=== PATIENT | female | born 1955 | race Caucasian/White ===

== ENCOUNTER 2019-03-08 23:11 | Inpatient (IN) ==
[2019-03-09] MEDS ORDERED: NARCAN IV ONE (00:27)
[2019-03-09 00:55] LABS: BASO# 0.04 X1000 (0.0-0.2); BASO% 0.7 % (0.0-0.8); EOS# 0.16 X1000 (0.0-0.7); EOS% 2.6 % (0.0-10.0); HEMATOCRIT 39.3 % (37.0-47.0); HEMOGLOBIN 12.6 g/dL (12.0-16.0); LYMPH# 1.79 X1000 (1.2-3.4); LYMPH% 29.2 % (20.5-51.1); MCH 30.1 PG (27-31); MCHC 32.1 g/dL (33-37); MCV 93.8 FL (81-99); MONO# 0.37 X1000 (0.11-0.59); MPV 10.3 FL (7.4-10.4); NEUT# 3.78 X1000 (1.4-6.5); NEUT% 61.5 % (42.2-75.2); PLT 256 X1000 (130-400); RBC 4.19 XMIL (4.2-5.4); RDW 14.9 % (11.5-14.5); WBC 6.14 X1000 (4.8-10.8)
[2019-03-09 01:21] LABS: AGAP 4; ALB/GLOB RATIO 1.4; ALBUMIN 3.5 g/dL (3.5-5.0); ALKALINE PHOSPHATASE 60 U/L (32-104); BUN 20 mg/dL (8-22); CALCIUM 8.4 mg/dL (8.8-10.2); CHLORIDE 107 mmol/L (98-107); COSMO 288; CREATININE 0.6 mg/dL (0.5-0.9); ESTIMATED GFR > 60; GLUCOSE 105 mg/dL (70-104); GOT 18 U/L (10-30); GPT 7 U/L (10-36); POTASSIUM 3.9 mmol/L (3.5-5.1); SODIUM 143 mmol/L (136-145); TCO2 32 mmol/L (25-35); TOTAL BILIRUBIN < 0.15 mg/dL (0.20-1.00)
[2019-03-09 02:14] LABS: URINE SOURCE CATH
[2019-03-09 02:21] LABS: BILIRUBIN URINE NEGATIVE (NEGATIVE); BLOOD URINE MODERATE (NEGATIVE); COLOR YELLOW; GLUCOSE URINE NEGATIVE (NEGATIVE); KETONE URINE 40 mg/dL (NEGATIVE); LEUKOCYTES URINE NEGATIVE (NEGATIVE); NITRITE URINE NEGATIVE (NEGATIVE); PH URINE 5.5; PROTEIN URINE 30 mg/dL (NEGATIVE); TURBIDITY URINE CLEAR (CLEAR); UROBILINOGEN URINE 2 mg/dL (NORMAL)
[2019-03-09 02:27] LABS: UR EPITHELIAL CELLS <10 /HPF (<10); URINE BACTERIA NEGATIVE /HPF; URINE RBC <10 /HPF (<10); URINE WBC <10 /HPF (<10)
[2019-03-09 02:30] LABS: UR AMPHETAMINES QUAL NONE DETECTED (NONE DETECT); UR BARBITUATES QUAL NONE DETECTED (NONE DETECT); UR BENZODIAZEPIN QUAL NONE DETECTED (NONE DETECT); UR CANNABINOIDS QUAL NONE DETECTED (NONE DETECT); UR COCAINE QUAL NONE DETECTED (NONE DETECT); UR METHADONE QUAL NONE DETECTED (NONE DETECT); UR OPIATES QUAL NONE DETECTED (NONE DETECT); UR OXYCODONE QUAL NONE DETECTED (NONE DETECT); UR PCP QUAL NONE DETECTED (NONE DETECT)
[2019-03-09 02:32] LABS: URINE CASTS NONE SEEN; URINE CRYSTALS NONE SEEN; URINE SMALL ROUND CELLS NONE SEEN; URINE YEAST PRESENT
--- NOTE | 2019-03-09 05:37 | Diag Imaging Result Doc PS360 ---
EXAM: CHEST-1 VIEW HISTORY: ams, fever TECHNIQUE: Chest single view COMPARISON: 02/19/2019 FINDINGS: The lungs are well expanded. The heart is not enlarged. The vessels are not distended. There are mild increased interstitial markings. No effusion identified. IMPRESSION: Mild pulmonary edema versus pneumonia Electronically signed by Jim Nascimento 03/09/2019 5:35 AM
--- NOTE | 2019-03-09 07:03 | PROVIDER DOCUMENTATION ---
This chart was entered by Jena Shell Scribe, acting as scribe for Tino Castellanos MD. HPI-General Adult - General Source: patient - History of Present Illness -Gen Adult Nature of Presenting Problems: Pt is 63/F presenting to ED w/ reports from daughter that she has been sleeping all day, not waking up easily and having some AMS. Pt did have bronchitis 2 wee ks ago. Location of Pain/Injury: reports: none Pain Radiation: reports: no radiation Quality of Pain: reports: none Severity: reports: mild Onset/Duration: reports: this morning Context/Activities at Onset: reports: none Modifying Factors: improves with: nothing Associated Symptoms: reports: denies symptoms. denies: chest pain, fever/chills, nausea, vomiting <Tino Castellanos - Last Filed: 03/09/19 07:02> <Michelle Casas - Last Filed: 03/09/19 07:33> - General Chief Complaint: Altered Mental Status Stated Complaint: AMS, POSS STROKE Time Seen by Provider: 03/09/19 00:08 Allergies/Adverse Reactions: Patient Allergies Allergy/AdvReac Type Severity Reaction Status Date / Time naproxen Allergy Mild ITCHING Verified 03/09/19 06:50 Home Medications: Home Medication List Medication Instructions Recorded Confirmed Last Taken Type Albuterol Sulfate [Ventolin Hfa] 03/09/19 03/08/19 History Buprenorphine HCl/Naloxone HCl 03/09/19 03/08/19 History [Buprenorp-Nalox 8-2 mg Sl Film] Levofloxacin 03/09/19 03/08/19 History Lisinopril/Hydrochlorothiazide 03/09/19 03/08/19 History [Lisinopril-Hctz 20-25 mg Tab] Review of Systems - Adult - REVIEW OF SYSTEMS - ADULT Constitutional: reports: no symptoms reported. denies: chills, fever Eyes: reports: no symptoms reported Ears, Nose, Mouth & Throat: reports: no symptoms reported Cardiovascular: reports: no symptoms reported. denies: chest pain Respiratory: reports: no symptoms reported. denies: cough, shortness of breath, wheezing Gastrointestinal: reports: no symptoms reported. denies: abdominal pain, nausea, vomiting Genitourinary: reports: no symptoms reported Musculoskeletal: reports: no symptoms reported Integumentary: reports: no symptoms reported Neurological: reports: no symptoms reported. denies: dizziness/vertigo, headache/migraines Psychiatric: reports: no symptoms reported Endocrine: reports: no symptoms reported Hematologic/Lymphatic: reports: no symptoms reported Allergic/Immunologic: reports: no symptoms reported All Other Systems: Reviewed and Negative <Tino Castellanos - Last Filed: 03/09/19 07:02> Past History - Adult - PAST MEDICAL HISTORY-ADULT Review of Records: reports: Old Records Reviewed, Nursing Assessment Review Major Childhood Illnesses: reports: denies history Cardiovascular: reports: HTN Respiratory: reports: asthma Gastrointestinal: reports: denies history Obstetrical/Gynecological: reports: denies history Genitourinary: reports: denies history Musculoskeletal: reports: denies history Neurological: reports: denies history Psychiatric: reports: denies history Endocrine/Immune: reports: denies history Other Conditions: reports: denies history - SOCIAL HISTORY Smoking: greater than 1 pack/day Provider spent 3-5 mins advising pt. on dangers of tobacco.: Discussed manners to quit use, and f/u contacts for add'l counseling. Substance Use: none/never Alcohol Use Frequency: never Living Situation: family <Tino Castellanos - Last Filed: 03/09/19 07:02> Physical Exam-General - PHYSICAL EXAM-ADULT Initial Vital Signs Reviewed: Yes - CONSTITUTIONAL General Appearance: appears well, alert, no apparent distress - EYES Eyes: PERRL/EOMI, pink conjunctivae, other (pupils are constricted) - HEAD, EARS, NOSE, MOUTH & THROAT HENMT: normocephalic/atraumatic, moist mucous membranes, normal ENT inspection, TMs normal - NECK Neck: non-tender, full range of motion, supple, normal inspection - RESPIRATORY Respiratory: lungs clear - CARDIOVASCULAR Cardiovascular: regular rate, rhythm - GASTROINTESTINAL (ABDOMEN) Abdominal Exam: normal bowel sounds, non tender, soft - LYMPHATIC Lymphatic: no adenopathy - MUSCULOSKELETAL Back Exam: normal inspection, no CVA tenderness, no vertebral tenderness Extremity: normal range of motion, non-tender, normal gait, normal inspection - SKIN Integumentary: normal color, warm/dry - NEUROLOGIC Neurologic: grossly normal - PSYCHIATRIC Psych/Mental Status: normal mood/affect, normal thought content, normal thought process, oriented x 3 <Castellanos,Tino T. - Last Filed: 03/09/19 07:02> Progress - PLAN OF CARE/RESULTS Progress/Plan/Lab Results: Vital Signs - 8 hr 03/08/19 23:23 03/08/19 23:52 Temperature 99.1 F 99.5 F Pulse Rate 61 57 L Respiratory Rate 20 19 Blood Pressure 166/70 151/74 O2 Sat by Pulse Oximetry 91 L 92 L Result Diagrams: 03/09/19 00:20 03/09/19 00:20 - REASSESSMENT Reassessment #1 Time Reassessed: 03:25 (pt seems sl more alert. pupils are not as constricted. She says that took suboxone yest am, no extra. Daughters say has been sleeping since the Narcan) Reassessment #2 Time Reassessed: 06:25 (still with some slurring spech, daughter, G-daughter do not feel is her NL self) - EKG 1 Time of EKG reading by physician:: 00:18 EKG Read and Signed by:: Tino Castellanos EKG Interpretation (*Must complete 3 of following elements*): Abnormal (sinus b radycardia with premature atrial complexes, Possible Anteroseptal infarct, age undetermined, Abnormal ECG) Rate: 57 Rhythm: sinus bradycardia [place]: normal QRS: normal CA Interval: normal - XRAY 1 XRAY Study: Chest Impression: Normal - CT/MRI 1 CT Study: Head Impression: Normal (no acute intracranial abnormality is identified.) - CHANGE OF SHIFT REPORT (ED Provider) 1 Report Given and Care Transferred to:: [facility] Time of Transfer: 07:00 Items Pending: Physician Consult/Arrival <Tino Castellanos - Last Filed: 03/09/19 07:02> - PLAN OF CARE/RESULTS Progress/Plan/Lab Results: Vital Signs - 8 hr 03/08/19 23:52 03/09/19 01:00 03/09/19 02:00 Temperature 99.5 F Pulse Rate 57 L 62 54 L Respiratory Rate 19 17 18 Blood Pressure 151/74 142/91 148/86 O2 Sat by Pulse Oximetry 92 L 98 94 L 03/09/19 04:47 Temperature 98.4 F Pulse Rate 59 L Respiratory Rate 19 Blood Pressure 150/91 O2 Sat by Pulse Oximetry 95 Laboratory Results - last 24 hr 07/09/2703/09/19 03/09/19 00:20 00:20 00:20 WBC 6.14 RBC 4.19 L Hgb 12.6 Hct 39.3 MCV 93.8 MCH 30.1 MCHC 32.1 L RDW Std Deviation 14.9 H Plt Count 256 MPV 10.3 Immature Gran % (Auto) 0.0 Neut % (Auto) 61.5 Lymph % (Auto) 29.2 [place] % (Auto) 6.0 Eos % (Auto) 2.6 Baso % (Auto) 0.7 Immature Gran # (Auto) 0.00 Neut # (Auto) 3.78 Lymph # (Auto) 1.79 [place] # (Auto) 0.37 Eos # (Auto) 0.16 Baso # (Auto) 0.04 Sodium 143 Potassium 3.9 Chloride 107 Carbon Dioxide 32 Anion Gap 4 BUN 20 Creatinine 0.6 Estimated GFR/1.73 m2 > 60 BUN/Creatinine Ratio 33 Glucose 105 H POC Glucose Calculated Osmolality 288 Calcium 8.4 L Total Bilirubin < 0.15 L AST 18 ALT 7 L Alkaline Phosphatase 60 Total Protein 6.0 L Albumin 3.5 Globulin 2.5 Albumin/Globulin Ratio 1.4 Urine Source Urine Color Urine Turbidity Urine pH Ur Specific [place] Urine Protein Ur Glucose (Stick) Ur Ketones (Stick) Urine Blood Urine Nitrite Urine Bilirubin Urobilinogen Dipstick Urine Leukocytes Urine WBC (Auto) Urine RBC (Auto) U Epithel Cells (Auto) Urine Bacteria (Auto) Urine Crystals Small Round Cells Urine Casts Urine Yeast-like Cells Urine Opiates Screen Ur Oxycodone Screen Ur Methadone, Qual Ur Barbiturates Screen Ur Phencyclidine Scrn Ur Amphetamines Screen U Benzodiazepines Scrn Urine Cocaine Screen U Cannabinoids Screen Plasma/Serum Ethyl Alc 03/09/19 03/09/19 03/09/19 01:25 02:08 02:08 WBC RBC Hgb Hct MCV MCH MCHC RDW Std Deviation Plt Count MPV Immature Gran % (Auto) Neut % (Auto) Lymph % (Auto) [place] % (Auto) Eos % (Auto) Baso % (Auto) Immature Gran # (Auto) Neut # (Auto) Lymph # (Auto) [place] # (Auto) Eos # (Auto) Baso # (Auto) Sodium Potassium Chloride Carbon Dioxide Anion Gap BUN Creatinine Estimated GFR/1.73 m2 BUN/Creatinine Ratio Glucose POC Glucose 104 Calculated Osmolality Calcium Total Bilirubin AST ALT Alkaline Phosphatase Total Protein Albumin Globulin Albumin/Globulin Ratio Urine Source CATH Urine Color YELLOW Urine Turbidity CLEAR Urine pH 5.5 Ur Specific [place] 1.030 Urine Protein 30 A Ur Glucose (Stick) NEGATIVE Ur Ketones (Stick) 40 A Urine Blood MODERATE A Urine Nitrite NEGATIVE Urine Bilirubin NEGATIVE Urobilinogen Dipstick 2 A Urine Leukocytes NEGATIVE Urine WBC (Auto) <10 Urine RBC (Auto) <10 U Epithel Cells (Auto) <10 Urine Bacteria (Auto) NEGATIVE Urine Crystals NONE SEEN Small Round Cells NONE SEEN Urine Casts NONE SEEN Urine Yeast-like Cells PRESENT Urine Opiates Screen NONE DETECTED Ur Oxycodone Screen NONE DETECTED Ur Methadone, Qual NONE DETECTED Ur Barbiturates Screen NONE DETECTED Ur Phencyclidine Scrn NONE DETECTED Ur Amphetamines Screen NONE DETECTED U Benzodiazepines Scrn NONE DETECTED Urine Cocaine Screen NONE DETECTED U Cannabinoids Screen NONE DETECTED Plasma/Serum Ethyl Alc Orders Category Date Time Status Nursing- Obtain EKG ONCE Care 03/09/19 00:21 Active CHEST-1 VIEW [RAD] Stat Exams 03/09/19 00:[address] HEAD W/O CONTRAST [CT] Stat Exams 03/09/19 00:23 Completed ALCOHOL BLOOD Stat Lab 03/09/19 00:20 Completed CBC WITH DIFF [HEME] Stat Lab 03/09/19 00:20 Completed COMPREHENSIVE METABOLIC PANEL [CHEM] Stat Lab 03/09/19 00:20 Completed URINALYSIS W/POSS RFLX CULT [URINALYSIS] Stat Lab 03/09/19 02:08 Completed URINE DRUG SCREEN Stat Lab 03/09/19 02:08 Completed URINE MANUAL MICROSCOPIC [URINALYSIS] Stat Lab 03/09/19 02:08 Completed Naloxone [Narcan] Med 03/09/19 00:27 Discontinued 0.4 mg IV NOW ONE EKG [EKG] Stat Ther 03/09/19 00:21 Ordered Result Diagrams: 03/09/19 00:20 03/09/19 00:20 - CONSULTS/PCP/HOSPITALIST Notification #1 *Consult/PCP/Hospitalist*: MIKEL MEDELLIN HOSPITALIST Time Discussed: 07:29 Consult Disposition: Admit <Michelle Casas - Last Filed: 03/09/19 07:33> Departure - Departure Date of Disposition Decision: 03/09/19 Time of Disposition Decision: 06:55 Certified Medical Emergency: Emergent - Critical Care Note This patient required my direct & personal management of CC.: No <Tino Castellanos - Last Filed: 03/09/19 07:02> <Michelle Casas - Last Filed: 03/09/19 07:33> - Departure DIAGNOSIS: Altered mental status Qualifiers: Altered mental status type: unspecified Qualified Code(s): R41.82 - Altered mental status, unspecified Disposition: ADMITTED INPATIENT 09 Condition: Good Referrals and Follow-Ups: John Wells [Primary Care Provider] - Attestation - Physician/ MARYJO Attestation Patient care was provided by Advanced Practice Provider:: No The physician spent face to face time with patient:: Yes Advanced Practice Provider documentation review:: Supervising physician onsite and consulted in the evaluation and care of this patient. The physician did have a face to face encounter with the patient. <Tino Castellanos - Last Filed: 03/09/19 07:02> This chart was documented by the indicated scribe, (Jena Shell, Chrisibe) and accurately reflects the services I performed and decisions made by me, Tino Castellanos MD, as attested by the provider's signature.
--- NOTE | 2019-03-09 07:21 | Diag Imaging Result Doc PS360 ---
EXAM: CT HEAD W/O CONTRAST INDICATION: AMS TECHNIQUE: This exam was performed using automated exposure control, adjustment of mA or kV according to patient size, and/or use of iterative reconstruction technique. COMPARISON: None. FINDINGS: There is no definite acute infarct given the limited sensitivity of CT versus MRI. There is no discrete intracranial mass, mass effect, or intracranial hemorrhage. There is extensive right maxillary sinus mucosal disease with subtotal opacification. Surrounding soft tissues and bony structures are essentially unremarkable, otherwise. IMPRESSION: No evidence of acute intracranial pathology. Electronically signed by Jeffrey Galdamez 03/09/2019 7:18 AM
[2019-03-09] MEDS ORDERED: ZOFRAN IV PRN (07:58)
[2019-03-09] MEDS ORDERED: TYLENOL PO PRN (07:58)
[2019-03-09 08:18] LABS: ALLEN TEST NO; BE 1.3 mmoll (-3.0-3.0); BLOOD TYPE ARTERIAL; HCO3-(ACT) 25.8 mmoll (20.0-26.0); METHB 0.8 % (0.0-1.5); O2HB 91.6 % (95.0-99.0); PCO2(98.6) 50 mmHg (35-45); PO2(98.6) 62 mmHg (60-100); SAMPLE BLOOD; SAO2 94.4 % (95.0-100.0); THB 12.4 g/dL (11.5-17.4); pH(98.6) 7.35 (7.35-7.45)
[2019-03-09 08:19] LABS: MODALITY CANNULA
--- NOTE | 2019-03-09 08:50 | EKG Report ---
Test Performed on : 03/09/2019 00:07:25 AM Test Reason : ams Blood Pressure : / mmHG Vent. Rate : 057 BPM Atrial Rate : 057 BPM P-R Int : 150 ms QRS Dur : 088 ms QT Int : 422 ms P-R-T Axes : 070 025 034 degrees QTc Int : 410 ms Sinus bradycardia. with premature atrial complexes. Possible Anteroseptal infarct , age undetermined Abnormal ECG When compared with ECG of 28-FEB-2012 08:32, Significant changes have occurred Unconfirmed Result
--- NOTE | 2019-03-09 10:52 | EKG Report ---
Test Performed on : 03/09/2019 10:47:30 AM Test Reason : abn telemetry Blood Pressure : / mmHG Vent. Rate : 049 BPM Atrial Rate : 049 BPM P-R Int : 142 ms QRS Dur : 086 ms QT Int : 432 ms P-R-T Axes : 076 081 054 degrees QTc Int : 390 ms Sinus bradycardia. with sinus arrhythmia. Anterior infarct (cited on or before 09-MAR-2019) Abnormal ECG When compared with ECG of 09-MAR-2019 00:07, (Unconfirmed) premature atrial complexes. are no longer present Non-specific change in ST segment in Anterior leads Confirmed by Jose Frazier MD ([id number]) on 03/09/2019 8:52:02 PM
--- NOTE | 2019-03-09 11:16 | HISTORY AND PHYSICAL ---
PRIMARY CARE PHYSICIAN: John Wells Jr, MD CHIEF COMPLAINT: Altered mentation. HISTORY OF PRESENT ILLNESS: Ms Marina Ring is a 63-year-old female with a medical history of chronic back pain on Suboxone, also history of GERD, peptic ulcer disease, COPD, and, hypertension who now presents with a 1-day history of excessive sleeping, drowsiness, confusion, and was brought in for that. Currently she is alert. She is oriented. Head CT was negative. We will monitor her. Get MRI imaging. She does have a right carotid bruit with auscultation. We will check carotids on her. If everything turns out okay, she should be able to go home. There is no other neurologic deficit noted. PAST MEDICAL HISTORY: 1. Chronic back pain. 2. GERD. 3. Peptic ulcer disease. 4. COPD. 5. Hypertension. SURGICAL HISTORY: 1. Hysterectomy. 2. Cholecystectomy. 3. Appendectomy. 4. Back surgery. 5. Right hip replaced. SOCIAL HISTORY: Vdch-qyhh-qwp-day smoker since age of 17, on and off. Denies alcohol or illicit drug use. Lives at home with her . FAMILY HISTORY: Mother had heart disease that started in her 70s. Father had COPD. ALLERGIES: She stated no known drug allergies, but naproxen is listed under her allergy list here in the hospital. HOME MEDICATIONS: Have not been verified yet. She is on Suboxone and lisinopril at home. She states that she is prescribed 1 strip today, but only takes about 1/3 of it in the morning. REVIEW OF SYSTEMS: A 14 point review of systems is complete, and all are negative, except for those mentioned above in HPI. Occasional dizziness, green phlegm for 2 weeks. PHYSICAL EXAMINATION: VITAL SIGNS: Temperature 98 degrees, heart rate 59, respiratory rate 17, blood pressure 132/74, O2 saturation 97% on 2 L. GENERAL: Ms. Marina Ring is a 63-year-old female. She is in no acute distress. She is able answer questions appropriately. HEENT: Atraumatic, normocephalic. Pupils equal, round, and reactive to light. Extraocular movements intact. Mucous membranes are dry. NECK: Trachea midline. CARDIOVASCULAR: S1, S2 regular rate and rhythm. No rubs, gallops, murmurs. No lower extremity edema. Pulses +2 dorsalis and radial. Negative for JVD. Positive carotid bruit on the right. PULMONARY: Mild expiratory wheezes. No accessory muscle use or work of breathing noted. GASTROINTESTINAL: Soft, nontender, nondistended. Positive bowel sounds x4. EXTREMITIES: Moves all extremities equally with full range of motion. NEUROLOGICAL: AA O x3. Follows commands. Sensory is intact. SKIN: Warm, dry, intact. DIAGNOSTIC STUDIES: White blood cells 6000, hemoglobin 12, hematocrit 39, platelet count 256,000. ABG: PH 7.35, pCO2 of 50, PO2 of 62, bicarbonate 25, base excess 1.3, saturation 91%, lactate 0.3. Sodium 143, potassium 3.9, BUN 20, creatinine 0.6, glucose 105, calcium 8.4, bilirubin is less than 0.15, AST 18, ALT 7, albumin 3.5. Urinalysis: 30 protein, 40 ketones, moderate blood. Urine drug screen negative. Alcohol level negative. Head CT: Negative for any acute findings. She does have some extensive right maxillary sinus mucosal disease with subtotal opacification. Chest x-ray: Mild pulmonary edema versus pneumonia. EKG: Sinus bradycardia, rate 57. QTc is 410. ASSESSMENT AND PLAN: 1. Transient ischemic attack versus cerebrovascular accident. Head CT was negative. Her symptoms have resolved. Denying MRI. She does have a right carotid bruit. We will get carotid ultrasound and echocardiogram, and Neurology consulted. 2. It could just be an encephalopathy of unknown cause. It could be from the pneumonia that she was recently treated for. It looks like it is still there. 3. Community-acquired pneumonia. It looks like probably failed outpatient treatment. Although white count is normal, she is still producing green phlegm, and x-ray still shows pneumonia. We will start her on some Rocephin. 4. Chronic obstructive pulmonary disease. No exacerbation. Mild CO2 retention at 50. We will do some p.r.n. nebulizers, albuterol and Atrovent. 5. Hypertension. Takes lisinopril at home. Still waiting for dosing to be evaluated so we can get that resumed for her. 6. Deep venous thrombosis prophylaxis. Lovenox. 7. Tobacco abuse. Cessation discussed with refusal. Dictated by VIET Pascal for Ngozi Landeros MD cc: VIET Pascal MD
[2019-03-09] MEDS: DUONEB (A & A) INH SCH ×4 (12:10→23:50)
[2019-03-09] MEDS: ROCEPHIN 1 GM in NS 50 ML IV SCH (12:40)
[2019-03-09] MEDS: NS 1,000 ML IV SCH (12:41)
--- NOTE | 2019-03-09 14:36 | CONSULTATION ---
DATE OF CONSULTATION: 03/09/2019 NEUROLOGY CONSULT: Ms. Ring is 63 years old, and she has had some episodes of dizziness. This is a little bit hard for her to describe precisely. She is mostly dizzy with loss of energy and a sense that she needs to sleep. Symptoms are worse when she stands and better when she reclines. She does not notice dizziness with rolling over in bed while remaining recumbent. She feels weak all over but does not notice focal weakness. Sometimes she has a sense of being "warm on the inside" without change in facial appearance or definite flushing. Vision is sometimes a little bit dim, but she does not report blurred vision, diplopia, focal loss of visual field, blindness. She has occasional headache, but that is not consistently associated with these other episodes. When she feels weak and dizzy, she usually goes to bed and sleeps for an extended period of time, sometimes most of the day or the rest of the day. In retrospect, she thinks she might have started having some of these symptoms when she switched from brand-name Suboxone to generic buprenorphine/naloxone strips. She reports her current dose is 1/2 of an 8 mg strip once each day. She reports that dose has been steady for the last few months. Past history is remarkable for chronic back pain, GERD, COPD, continued cigarette smoking, hypertension. There is reported to be right carotid bruit. She reports no history of neurologic events, including serious head injury, stroke, seizure, episodes of collapse, or altered awareness. Workup here includes urine drug screen all negative on presentation. I do not know if our drug screen would show up positive for buprenorphine in the opiate screen. Initial noncontrast CT of the head was unremarkable. Brain MRI is ordered. Chemistry this admission shows calcium 8.4, nothing else remarkable. She has been afebrile here. Heart rate has ranged 50 to 62 during monitoring here. Systolic blood pressure was 166 on presentation, 132 last check early this morning. On exam, she is awake, alert, attentive, and appropriate. Speech is not dysarthric. Language function is intact on careful bedside testing. Recent and remote memory are good. She is completely oriented. She scored 29/30 on bedside cognitive testing - she made a careless error spelling "world" backward and answered every other question incorrectly. Head and neck are unremarkable. Visual martínez are full tested by confrontational finger counting. Extraocular movements are full. Facial motility is symmetric. Gag is intact. Tongue is midline. Shoulder shrug is good bilaterally. Strength is normal in the arms and legs. She did well on finger-to- nose testing bilaterally. Proprioception is good at the great toe MTP joint bilaterally. I did not test her gait. IMPRESSION: Reported transient drowsiness. There is report of confusion, but I do not have that documented. I do not find any neurologic deficit now, including no cognitive, attention, or language deficit. I told her I do not have a definite explanation. I suspect this is somehow connected to medication. I encouraged her to take her medicines as directed. I told her that if she believes she is having problem tolerating her current management, she should check with the prescriber to see if there are options. I told her she might continue tapering off of buprenorphine. I strongly encouraged her to quit smoking cigarettes. If she has episodes of altered awareness or further fluctuations in level of consciousness, we might consider EEG. I believe that she has brain MRI ordered, and I will check on that report when available. Otherwise, no suggestions from Neurology standpoint right now. Thanks for asking me to see Ms. Ring. cc: MD GERMAINE Bill III
--- NOTE | 2019-03-09 15:04 | ECHO REPORT ---
ORDER DATE: 03/09/2019 INDICATION FOR THE STUDY: CVA, altered mental status. FINDINGS: 1. The right atrium appears mildly enlarged at 4 cm. 2. Mild tricuspid regurgitation. RV systolic pressure is 69. 3. Normal RV size and systolic function. 4. Trace pulmonic insufficiency. 5. Severe left atrial enlargement with a volume index of 41. 6. No mitral valve prolapse. Mild mitral regurgitation. No evidence of mitral stenosis. 7. Normal LV size, end-diastolic dimension of 4.9. Normal wall thicknesses with a posterior and interventricular septal thickness of 1 cm each. Normal LV systolic function. Estimated EF is 65% to 70% with normal wall motion. 8. The aortic valve opens well. It is trileaflet. No evidence of stenosis or insufficiency. 9. The aorta appears normal in visualized segments. 10. No pericardial effusion seen. 11. Injection of agitated saline contrast did not reveal any clear evidence of [id number] shunting. cc: MD Jodie Mast CRNP
[2019-03-09] MEDS: PULMICORT FLEXHALER INH SCH (19:50)
[2019-03-10] MEDS: NS 1,000 ML IV SCH (01:20)
[2019-03-10 06:48] LABS: BASO# 0.03 X1000 (0.0-0.2); BASO% 0.5 % (0.0-0.8); EOS# 0.11 X1000 (0.0-0.7); EOS% 1.8 % (0.0-10.0); HEMATOCRIT 39.1 % (37.0-47.0); HEMOGLOBIN 12.3 g/dL (12.0-16.0); LYMPH# 1.31 X1000 (1.2-3.4); LYMPH% 21.8 % (20.5-51.1); MCH 29.9 PG (27-31); MCHC 31.5 g/dL (33-37); MCV 94.9 FL (81-99); MONO# 0.43 X1000 (0.11-0.59); MONO% 7.2 % (1.7-9.3); MPV 10.1 FL (7.4-10.4); NEUT# 4.12 X1000 (1.4-6.5); NEUT% 68.7 % (42.2-75.2); PLT 219 X1000 (130-400); RBC 4.12 XMIL (4.2-5.4); RDW 14.9 % (11.5-14.5)
[2019-03-10 06:55] LABS: INR 1.07; PROTIME 14.8 Seconds (11.0-16.0)
[2019-03-10 06:56] LABS: PTT 29.5 Seconds (22.3-41.8)
[2019-03-10 07:22] LABS: AGAP 9; ALB/GLOB RATIO 1.7; ALBUMIN 3.4 g/dL (3.5-5.0); ALKALINE PHOSPHATASE 56 U/L (32-104); BUN 19 mg/dL (8-22); CALCIUM 8.5 mg/dL (8.8-10.2); CHLORIDE 108 mmol/L (98-107); COSMO 291; CREATININE 0.6 mg/dL (0.5-0.9); ESTIMATED GFR > 60; GLUCOSE 97 mg/dL (70-104); GOT 19 U/L (10-30); GPT 11 U/L (10-36); MAGNESIUM 1.8 mg/dL (1.5-2.7); POTASSIUM 4.1 mmol/L (3.5-5.1); SODIUM 145 mmol/L (136-145); TCO2 28 mmol/L (25-35); TOTAL BILIRUBIN 0.26 mg/dL (0.20-1.00); TOTAL PROTEIN 5.4 g/dL (6.3-8.3)
[2019-03-10] MEDS: DUONEB (A & A) INH SCH ×5 (07:51→23:05)
[2019-03-10] MEDS: PULMICORT FLEXHALER INH SCH ×2 (08:12→20:10)
[2019-03-10] MEDS: SUBOXONE 8 MG/2 MG SL SCH (08:48)
[2019-03-10] MEDS: LOVENOX SUBQ SCH (08:48)
[2019-03-10] MEDS: PRINZIDE 10/12.5MG PO SCH (08:48)
[2019-03-10] MEDS: ROCEPHIN 1 GM in NS 50 ML IV SCH (10:02)
--- NOTE | 2019-03-10 11:25 | Carotid Study ---
DATE: 03/09/2019 PROCEDURE: Bilateral carotid duplex imaging. REQUESTING PHYSICIAN: [*]. INTERPRETING PHYSICIAN: Joselito Keys MD. TECH: [place]. INDICATIONS: Right-sided bruit with history of CVA. OBSERVED DATA RIGHT LEFT Brachial Blood Pressure Carotid Pulse Bruits: Carotid/Sub DIAGRAM OF ULTRASOUND IMAGING R L RIGHT INT EXT INT EXT LEFT Ender (cm/s) Ender (cm/s) Subclavian 132/0 Subclavian 155/0 CCA Proximal 404/53 CCA Proximal 123/34 CCA Distal 120/12 CCA Distal 144/44 Bulb 82/15 Bulb 199/96 ICA Proximal 58/24 ICA Proximal 280/90 ICA Mid 682/235 ICA Mid 223/87 ICA Distal 48/22 ICA Distal 108/68 ECA 102/12 ECA 168/20 Vertebral 100/29 Vertebral 103/28 ICA/CCA Ratio 1.69 ICA/CCA Ratio 2.28 % Stenosis 80-99% within the higher range of this. % Stenosis 80-99% FINDINGS: In the right carotid artery system, there is a very proximal plaque in the common carotid artery that causes elevation of velocity and turbulence of flow. There is also starting in the bulb and extending into proximal and mid internal carotid artery a calcified heterogeneous plaque with significant turbulence of flow and elevation of velocities that would correlate to the 80-99% range. Similarly in the left, there is elevation of velocities with a heterogeneous plaque in the bulb extending to proximal and mid internal carotid artery. SUMMARY: Critical stenosis bilaterally with antegrade vertebrals. On the right, there is also a proximal common carotid artery stenosis as well. cc: MD Jodie Acosta CRNP
--- NOTE | 2019-03-10 12:06 | EKG Report ---
Test Performed on : 03/10/2019 11:49:44 AM Test Reason : sinus yecenia Blood Pressure : / mmHG Vent. Rate : 035 BPM Atrial Rate : 035 BPM P-R Int : 142 ms QRS Dur : 090 ms QT Int : 470 ms P-R-T Axes : 072 051 040 degrees QTc Int : 358 ms Marked sinus bradycardia. Abnormal ECG When compared with ECG of 09-MAR-2019 10:47, No significant change was found Confirmed by oJse Frazier MD ([id number]) on 03/10/2019 9:33:47 PM
--- NOTE | 2019-03-10 14:43 | CARDIOLOGY CONSULTATION ---
DATE: 03/10/2019 CONSULTATION REQUESTED BY: Hospitalist service. REASON FOR CONSULTATION: Bradycardia. HISTORY: Mrs. Ring is a 63-year-old female who presented for evaluation because she felt sluggish, very sleepy and they thought that she was having some sort of mental status changes. Upon presentation, they did a chest x-ray that shows mild pulmonary edema versus pneumonia. Her initial blood work showed that her troponins are negative. They did not check proBNP. The initial EKG shows sinus bradycardia and overnight she has had episodes of seemingly significant sinus bradycardia as low as 35 beats per minute. When walking, her heart rate actually goes up to 60 beats per minute. She denies having chest pain. Denies dyspnea. They called me in a hurry late this morning because she was significantly bradycardic. However, I walked into the room and she was eating her lunch and not having any complaints. Then she walked down the johnson. Her heart rate picked up to 59 beats per minute per minute. On further questioning, she had a complaint of some dizzy feeling. Did a carotid ultrasound yesterday that shows severe stenosis of both carotid arteries 80 to 99 percent bilaterally. Her bradycardia may well be just compensatory for the severe cerebrovascular stenosis. An echocardiogram that they did yesterday is actually normal. PAST MEDICAL HISTORY: The patient has no previous history of heart disease. Her main history is positive for chronic back pain requiring pain medications. SURGICAL HISTORY: Includes a hysterectomy, cholecystectomy, and back and hip surgery. SOCIAL HISTORY: She is , lives with . She is a smoker of half a pack a day for many years. FAMILY HISTORY: Mother had a heart attack in her 70s. ALLERGIES: She is intolerant to Naprosyn. HOME MEDICATIONS: Include albuterol, buprenorphine, Nexium, Levaquin, lisinopril, hydrochlorothiazide. REVIEW OF SYSTEMS: Beyond what I have reported is non consequential. PHYSICAL EXAM: Temperature is 97.9 degrees, pulse 56, respirations 18, blood pressure 129/59. She is awake, alert, oriented, in no distress.HEENT: There is a very loud right cervical bruit. Chest: Shows diminished breath sounds bilaterally. Heart: Sounds are regular rhythmic, soft systolic murmur noted. Abdomen: Nontender. Extremities: Show decreased pulses. No peripheral edema. Neurological: Nonfocal. Moves 4 extremities. She is fully alert. Gait is normal. She was walking down the johnson without any difficulty. LABORATORY DATA: Sodium 145, potassium 4.1, BUN 19, creatinine 0.6. Albumin 3.4. IMPRESSION: 1. Patient who has asymptomatic sinus bradycardia. This results with the patient getting up and walking. 2. Severe critical bilateral carotid artery disease. 3. Tobacco user. 4. Chronic pain syndrome. RECOMMENDATION: At this time, I will request a carotid CT angiogram of the head and neck and also a CT of the thorax for further evaluation of her case. I believe this patient needs to be seen by the vascular surgeons and they need to decide whether or not to proceed with surgery at their earliest convenience. She is at increased risk for cerebral ischemic events. The patient really needs to quit smoking. Follow a healthy lifestyle. I would be very careful with dropping her blood pressure too much with antihypertensive drugs until her carotid artery disease is properly treated. Please call me should you have any questions or concerns. From my viewpoint, I would not perform a preoperative stress test. Patient may go ahead and proceed with her carotid artery surgery. cc: Oj Negrete MD MTDD
--- NOTE | 2019-03-10 15:23 | Diag Imaging Result Doc PS360 ---
CT THORAX W/O CONTRAST - 03/10/2019 INDICATION: PATIENT WITH PERSISTENT INFILTRATES COMPARISON: Chest x-ray 03/09/2019 FINDINGS: Heart size is top normal. There is advanced calcified coronary artery disease. There is also advanced vascular disease of the aortic arch and great vessels. No adenopathy. Calcified granuloma in the left upper lobe. There are some faint infiltrates in the lingula, right middle lobe and right lower lobe. There is some interstitial pulmonary edema in the lung bases. There are trace bilateral pleural effusions. Upper abdominal images are grossly normal. There are moderate degenerative changes of the spine. No acute or suspicious bony lesion. IMPRESSION: 1. Mild cardiomegaly. Trace pulmonary edema. Trace pleural effusions. 2. Tiny nonspecific infiltrates bilaterally. This exam was performed using automated exposure control, adjustment of mA or kV according to patient size, and/or use of iterative reconstruction technique Electronically signed by Adrian Pierre 03/10/2019 3:21 PM
--- NOTE | 2019-03-10 15:33 | Diag Imaging Result Doc PS360 ---
CT ANGIOGRAM HEAD/NECK - 03/10/2019 INDICATION: CRITICAL BILATERAL CAROTID ARTERY STENOSIS TECHNIQUE: Axial CT images were obtained after administering intravenous contrast. Three-dimensional angiographic images were generated. COMPARISON: Ultrasound from 03/09/2019 FINDINGS: Great vessel origins are agent. At the right proximal common carotid artery adjacent to the thyroid gland, there is a focal critical stenosis of about 80% narrowing. At the right carotid bifurcation, there is again critical stenosis of about 95% narrowing. There is significant calcified plaque buildup of the intracranial right internal carotid artery, involving the cavernous and supraclinoid portion. There is significant stenosis of about 50% narrowing at these locations. The right anterior and middle cerebral arteries are patent. The left common carotid artery is patent. There is severe stenosis at the left carotid bulb and proximal internal carotid artery. There is about 75% narrowing here. There is once again significant calcified plaque buildup of the left cavernous and supraclinoid internal carotid artery. There is multifocal moderate to severe stenosis of up to 75%. The left anterior and middle cerebral arteries are patent. The vertebral arteries are patent and codominant. The basilar artery is patent. The posterior cerebral arteries are patent. IMPRESSION: 1. Critical stenosis of the right carotid bifurcation. Severe stenosis of the left carotid bifurcation and proximal internal carotid artery. 2. Severe vascular disease with extensive, severe stenosis of both intracranial internal carotid arteries. This exam was performed using automated exposure control, adjustment of mA or kV according to patient size, and/or use of iterative reconstruction technique Electronically signed by Adrian Pierre 03/10/2019 3:30 PM
--- NOTE | 2019-03-10 16:08 | PROGRESS NOTE ---
DATE: 03/10/2019 Ms. Ring has not had any further episodes of dizziness or generalized weakness. Heart rate has been recorded in the low 50s at times. Dr. Negrete has addressed that. There is carotid ultrasound report of 80-99% internal carotid stenosis bilaterally. CT angiogram confirms significant ICA stenosis bilaterally. Vascular Surgery has been consulted. I am not convinced that the recent episode was symptomatic carotid stenosis. I do not think the recent episode was primarily neurologic. However, in light of the degree of carotid stenosis, endarterectomy may be warranted. I encouraged her to quit smoking cigarettes and to be aggressive with management of her risk factors for cerebrovascular ischemic problems. Thanks for asking Neurology to see Ms. Ring. cc: MD GERMAINE Bill III
--- NOTE | 2019-03-10 16:54 | PROGRESS NOTE ---
DATE: 03/10/2019 SUBJECTIVE: She has no major complaints. She really wants to go home. OBJECTIVE: Blood pressure is 129/59, heart rate 56, respiratory rate 18, temperature 97.9 degrees. Her lowest heart rates have been in the 30s, although she has been relatively asymptomatic.Cardiovascular: Regular rate and rhythm. Pulmonary: Bilateral breath sounds clear to auscultation. Gastrointestinal: Soft, nontender, nondistended. Bowel sounds were positive. DIAGNOSTIC STUDIES: White count is 6, hemoglobin 12, hematocrit 39, platelets 219,000. Electrolytes look okay. Her carotid Doppler shows bilateral carotid stenoses, 80% to 90% in both carotids, right greater than left. Her echo looked good with no wall motion abnormalities. She had a lot of left atrial enlargement, which I do not have a great explanation for. PROBLEM LIST: 1. Bilateral carotid stenosis in the setting of a possible transient ischemic attack. We will continue treatment. She is not on aspirin. I think she probably needs to be on aspirin until we can get definitive therapy which would be carotid endarterectomy. I think she also needs to be on statin, and I am going to start that. We will plan for a surgical consult. I think she has essentially had cardiac clearance. I anticipate they can do that soon at their leisure. 2. Bradycardia. This may be simply due to severe bilateral carotid stenoses, and we are awaiting treatment for that. 3. Questionable pneumonia. She is on Rocephin. We will continue treatment. 4. Advised on smoking cessation, especially considering her significant bilateral carotid stenoses. DISPOSITION: Pending her clinical status. I think if Dr. Cui feel she is stable she can go home this evening, but that will be at his discretion. cc: Austin Wylie MD
[2019-03-10] MEDS ORDERED: LIPITOR PO SCH (21:00)
[2019-03-11] MEDS: ASPIRIN EC PO SCH ×2 (01:02→09:26)
[2019-03-11] MEDS: NS 1,000 ML IV SCH ×3 (02:25→12:46)
[2019-03-11] MEDS: DUONEB (A & A) INH SCH ×2 (07:38→11:22)
[2019-03-11] MEDS: PULMICORT FLEXHALER INH SCH (07:45)
[2019-03-11 08:22] VITALS: BP 161/60
[2019-03-11 08:31] LABS: HEMATOCRIT 39.2 % (37.0-47.0); HEMOGLOBIN 12.3 g/dL (12.0-16.0); MCV 95.6 FL (81-99); WBC 5.54 X1000 (4.8-10.8)
[2019-03-11 08:32] LABS: BASO# 0.03 X1000 (0.0-0.2); BASO% 0.5 % (0.0-0.8); EOS# 0.17 X1000 (0.0-0.7); EOS% 3.1 % (0.0-10.0); LYMPH# 1.24 X1000 (1.2-3.4); LYMPH% 22.4 % (20.5-51.1); MCHC 31.4 g/dL (33-37); MONO# 0.42 X1000 (0.11-0.59); MONO% 7.6 % (1.7-9.3); MPV 10.4 FL (7.4-10.4); NEUT# 3.68 X1000 (1.4-6.5); NEUT% 66.4 % (42.2-75.2); PLT 196 X1000 (130-400); RDW 14.7 % (11.5-14.5)
[2019-03-11 08:49] LABS: AGAP 5; BUN 10 mg/dL (8-22); CALCIUM 8.5 mg/dL (8.8-10.2); CHLORIDE 105 mmol/L (98-107); COSMO 287; CREATININE 0.6 mg/dL (0.5-0.9); ESTIMATED GFR > 60; GLUCOSE 92 mg/dL (70-104); MAGNESIUM 1.7 mg/dL (1.5-2.7); POTASSIUM 4.3 mmol/L (3.5-5.1); SODIUM 145 mmol/L (136-145); TCO2 35 mmol/L (25-35)
[2019-03-11 09:03] LABS: CHOLESTEROL 153 mg/dL (0-200); HDL 54 mg/dL (45-65); LDL 81 mg/dL; TRIGLYCERIDES 92 mg/dL (35-135); VLDL 18 mg/dL
[2019-03-11] MEDS: PRINZIDE 10/12.5MG PO SCH (09:26)
[2019-03-11] MEDS: LOVENOX SUBQ SCH (09:26)
[2019-03-11] MEDS: SUBOXONE 8 MG/2 MG SL SCH (09:26)
[2019-03-11] MEDS: ROCEPHIN 1 GM in NS 50 ML IV SCH (09:30)
--- NOTE | 2019-03-11 11:31 | CONSULTATION ---
DATE OF CONSULTATION: 03/11/2019 HISTORY: Ms. Marina Ring is a 63-year-old white female who presented to the emergency department with some confusion and possible transient ischemic attack. A carotid study shows she has severe disease bilaterally, which is hemodynamically significant. Clinically, she is now fine. She has not had any further episodes of dizziness or weakness. PAST MEDICAL HISTORY: Chronic back pain on Suboxone. She also takes Goody powders. She has had some abdominal discomfort, and probably has peptic ulcer disease. She is a smoker and has COPD. Hypertension. PAST SURGICAL HISTORY: Hysterectomy, cholecystectomy, appendectomy, back surgery, and right hip replacement. SOCIAL HISTORY: Smoker. She lives at home with her and helps him with his work. FAMILY HISTORY: Her mother had a history of amputation and heart disease. Father had COPD. ALLERGIES: No known drug allergies. HOME MEDICATIONS: 1. Lisinopril. 2. Suboxone. 3. Goody powders. REVIEW OF SYSTEMS: A 14-point review of systems was performed, and was essentially negative except for the history of present illness. PHYSICAL EXAMINATION: General: On exam, Ms. Ring is a slim older white female in no acute distress. HEENT: No jaundice. No oral lesions. Satisfactory dentition. Lymphatic: No cervical or supraclavicular lymphadenopathy. Heart: Her heart has a regular rate. Lungs: Clear except for some expiratory wheezing. She had no work of breathing. Abdomen: Soft and nontender without palpable mass. No costovertebral tenderness Pelvic: Rectal and vaginal exams were not performed. Extremities: She does have palpable femoral pulses bilaterally. She has no peripheral edema. No ischemic ulcers in either lower extremity. Neurological: She has no focal deficits, and is awake and cooperative. DIAGNOSTIC: Carotid study suggests bilateral disease right worse than left about 80%. PLAN: I agree with controlling her risk factors, including a statin medication. She needs to be on a baby aspirin a day. I have recommended that she quit taking Goody powders and consider an H2 antagonist. We will see her after the holiday in our outpatient offices to schedule elective carotid endarterectomy. cc: Iman Cui MD
--- NOTE | 2019-03-11 22:42 | DISCHARGE SUMMARY ---
ADMISSION DATE: 03/08/2019 DISCHARGE DATE: 03/11/2019 SUBJECTIVE: Patient has no major complaints. She is doing well the day of discharge. DISCHARGE DIAGNOSES: 1. Possible transient ischemic attack. 2. Carotid stenosis, bilateral. 3. Possible pneumonia. 4. Chronic obstructive pulmonary disease. 5. Hypertension. 6. Bradycardia. CONSULTATIONS: 1. Dr. Lazaro, Neurology. 2. Dr. Negrete, Cardiology. 3. Dr. Cui, Vascular Surgery. HOSPITAL COURSE: Briefly, a 63-year-old female presenting with some confusion and drowsiness, which was not sure if it is TIA versus CVA. The patient was admitted. She refused MRI because she was just too anxious, but her carotid showed 80% to 99% blockage in both internal carotids. Her echocardiogram looked well, EF of 70%. No major issues. She did have some left atrial enlargement. She developed some bradycardia, which prompted a cardiology consultation. Dr. Negrete evaluated her, felt like she was asymptomatic, and he felt that the bradycardia may have been associated with her severe carotid stenosis. Overall, she improved. She was kept on her medication. I did keep her here. Dr. Moralez ordered a CTA, which showed a critical stenosis of the right carotid bifurcation, 95% narrowing and severe stenosis of the left bifurcation around 75%. Her CT of the chest was nonspecific. We worked on secondary risk factor modification. Dr. Lazaro was not convinced that she truly had TIA or even her symptoms were associated with her carotid stenosis because they were kind of nonspecific, but Dr. Cui was consulted, and he recommended carotid endarterectomy maintaining on aspirin, maintaining on a statin because she obviously has a coronary artery disease equivalent. Her LDL is not that bad at 81, however, with her high degree of stenosis, I think, statin would be helpful. Chest CT did not show pneumonia. She had some nonspecific infiltrate so I am not discharging her on antibiotics at this point. She has not had a white count, and she has not had a fever so she will be discharged on her Suboxone, lisinopril/ hydrochlorothiazide 20/25 daily, Nexium 40 daily, Ventolin, Lipitor 40 at bedtime and aspirin 81 daily. She is to follow up with Dr. Cui soon and her PCP who is Dr. Wells, return immediately for any acute neurological change. TIME SPENT: 32-minute discharge. cc: Austin Wylie MD
== END 2019-03-11 13:44 | disposition home or self-care (01) | DRG 69 ==
LOC: ED 23:11 → 3N 23:11 → SUATTDRO 23:12 → OBSVTOIN 23:12
PROVIDERS: ATTEND Internal Medicine
CPT/HCPCS: 70450; 70496; 70498; 71010; 71045; 71250; 80048; 80053; 80061; 80101; 80301; 80307; 80320; 80324; 80345; 80346; 80353; 80358; 80361; 80365; 81001; 82055; 82140; 82550; 82805; 82948; 83605; 83735; 83992; 84443; 84484; 85025; 85610; 85730; 87070; 87205; 93005; 93010; 93306; 93880; 94640; 94761; 94799; A9270; G0431; G0434; G0479; G0480; G6040; J0696; J1650; J2310; J7030; XXXXX

== ENCOUNTER 2019-03-30 12:00 | Inpatient (IN) ==
[2019-04-21] MEDS ORDERED: KEFZOL 1 GM/D5W 1 GM/50 ML IVPB ONE (05:38)
[2019-04-21] MEDS ORDERED: LR 1,000 ML ONE ×2 (05:38→09:26)
[2019-04-21] MEDS ORDERED: DUONEB (A & A) INH ONE ×2 (06:09→08:55)
[2019-04-21] MEDS ORDERED: NEO-SYNEPHRINE ONE (06:30)
[2019-04-21] MEDS ORDERED: QUELICIN (DOSE) ONE (06:35)
[2019-04-21] MEDS ORDERED: SODIUM CHLORIDE 0.9% 10 ML ONE (06:35)
[2019-04-21] MEDS ORDERED: XYLOCAINE-MPF 2% ONE (06:35)
[2019-04-21] MEDS ORDERED: DIPRIVAN 1% ONE (06:35)
[2019-04-21] MEDS ORDERED: NORCURON ONE (06:35)
[2019-04-21] MEDS ORDERED: NS 500 ML ONE (06:38)
[2019-04-21] MEDS ORDERED: XYLOCAINE 1%/EPI 1:100,000 ONE (06:38)
[2019-04-21] MEDS ORDERED: XYLOCAINE 1% ONE (06:38)
[2019-04-21] MEDS ORDERED: NS 1,000 ML ONE (06:39)
[2019-04-21] MEDS ORDERED: HEPARIN ONE (06:39)
[2019-04-21] MEDS ORDERED: THROMBIN-JMI ONE (06:39)
[2019-04-21] MEDS ORDERED: VERSED ONE (06:47)
[2019-04-21] MEDS ORDERED: EPHEDRINE ONE (07:20)
[2019-04-21] MEDS ORDERED: ROBINUL ONE ×2 (07:33→08:30)
[2019-04-21] MEDS ORDERED: OFIRMEV 1000 MG/ISOTONIC SOLN 1,000 MG/100 ML BOTTLE ONE (07:44)
[2019-04-21] MEDS ORDERED: ZOFRAN ONE (08:24)
[2019-04-21] MEDS ORDERED: NEOSTIGMINE ONE (08:30)
[2019-04-21] MEDS ORDERED: LOPRESSOR ONE (08:45)
[2019-04-21] MEDS ORDERED: NITROGLYCERIN LINGUAL SPRAY SL ONE (09:00)
[2019-04-21] MEDS ORDERED: LABETALOL IV ONE (09:00)
[2019-04-21] MEDS ORDERED: APRESOLINE ONE (09:03)
--- NOTE | 2019-04-21 09:50 | OPERATIVE NOTE ---
PROCEDURE DATE: 04/21/2019 PREOPERATIVE DIAGNOSIS: Bilateral high-grade carotid stenoses. POSTOPERATIVE DIAGNOSIS: Bilateral high-grade carotid stenoses. PRINCIPAL PROCEDURE: Right carotid endarterectomy with patch angioplasty. SURGEON: Iman Cui M.D. P[employer] MACHINE OPERATOR: Dr. ESVIN benito. ANESTHESIA: General in addition to local anesthetic. ESTIMATED BLOOD LOSS: 100 mL. DRAINS: None. INDICATIONS: Ms. Marina Ring is a 63-year-old white female smoker, who recently has had a cardiac evaluation. It has been discovered that she has bilateral high-grade carotid stenoses. We have discussed carotid endarterectomy. Will begin with the right side. FINDINGS: She had a large calcified plaque right at the carotid bulb, extending up into the internal carotid artery a short distance. We felt we had removed this plaque nicely, it feather distally, and I used a 0.8 cm wide patch to close our arteriotomy site. At the end of the procedure, she had a good pulse in her distal internal carotid artery. Dr. Benito was present throughout the case. His presence was necessary for help with dissection of the carotid artery, exposure of the carotid artery, help sewing the patch. DESCRIPTION OF PROCEDURE: The patient was brought to the operating room, placed supine, received general anesthesia, and was intubated. Her head was turned to the left. She was placed in reverse Trendelenburg. Her right neck was prepped and draped within a sterile field. We used an Ioban on the skin. She received Ancef prophylactically. She is a slim lady with a slim neck, and we decided to do a transverse incision within the skin lines, right neck. We did use local anesthetic at our incision. I made my incision with a 15 blade scalpel. It was carried down through full-thickness skin. The cautery was used to transect the soft tissue and the platysma muscle, and then we created a superior and inferior flap along the anterior border of the right sternocleidomastoid muscle. We mobilized the internal jugular vein laterally, and identified initially the common carotid artery, then the carotid bulb and its branches. We isolated the common carotid artery with a large vessel loop. We transected the facial branch of the internal jugular vein with 3-0 silk suture ligatures. As we approached some other vessels, we used hemostats and 3-0 and 4-0 silk ties to control bleeding. We isolated the external carotid artery with a small red vessel loop. We dissected the internal carotid artery proximally past the plaque, where we had room to work. We preserved the hypoglossal and vagus nerves. Once we were happy with our dissection, the patient was given 5000 units of IV heparin. After 3 minutes, flow was stopped through the common carotid artery and then its branches using our vessel loops. I made an arteriotomy on the lateral distal common carotid artery, and then used Gonzalez scissors to cut through the plaque, into the internal carotid artery. I placed a shunt. Initially, I placed it proximally in the common, and then into the internal carotid artery. I secured it distally with a shunt clamp, and proximally with the vessel loop. I used a [place] elevator to remove the plaque from proximal to distal. We nicely got it out of the external carotid artery, and we thought it feathered nicely in the internal carotid artery. Any debris was removed with fine forceps. I irrigated the arteriotomy site with heparin saline. I sewed a 0.[address], beginning at the apex. I then went down the side away from me with a running double arm 6- 0 Prolene stitch. I fashioned the patch so it would fit our arteriotomy site, and then used the other limb of the Prolene to come down the other side of our arteriotomy. I removed the shunt prior to completing our arteriotomy closure. I re-established flow through the external carotid artery and then the internal carotid artery. I had to use one single arm 6-0 Prolene stitch to control bleeding from our arteriotomy closure. Other than that, we felt it was intact. I decided against leaving a drain. We irrigated the wound, and I closed the wound in layers. First layer was the platysma muscle with a running 2-0 Vicryl stitch, and then the skin was closed with 4-0 Monocryl subcuticular stitch. Dressings were applied. At time of this dictation, the patient was still in the operating room, with plans for her to go to the recovery room, then ICU #3. cc: Iman Cui MD
[2019-04-21] MEDS: LR 1,000 ML IV SCH (11:28)
[2019-04-22] MEDS: NORCO-7.5 PO PRN ×2 (04:38→20:14)
[2019-04-22] MEDS: LR 1,000 ML IV SCH (08:05)
[2019-04-22] MEDS ORDERED: ASPIRIN PO SCH (09:00)
--- NOTE | 2019-04-22 10:39 | PROGRESS NOTE ---
DATE: 04/22/2019 SUBJECTIVE: Ms. Marina Ring is now postoperative day 1 from a right carotid endarterectomy with patch angioplasty. She was hospitalized in our ICU postoperatively. She needed straight catheterization because of some urinary retention, but she has had no problems with neurologic deficits, and she has been hemodynamically satisfactory. This morning, she has been up in a chair. She has some swelling involving her right neck, but it is minimal, and it was felt safe to transfer her to the floor. OBJECTIVE: Her heart rate is 53, blood pressure 123/57, O2 saturation 92%. She is afebrile. MEDICATION: On no antibiotics. She is on a baby aspirin a day. cc: Iman Cui MD
[2019-04-22] MEDS ORDERED: LIPITOR PO SCH (21:00)
[2019-04-23] MEDS: NORCO-7.5 PO PRN (03:04)
[2019-04-23] MEDS ORDERED: VENTOLIN HFA INH SCH (07:30)
[2019-04-23] MEDS ORDERED: PRINZIDE 20/12.5MG PO SCH (09:00)
[2019-04-23] MEDS ORDERED: ASPIRIN EC PO SCH (09:00)
[2019-04-23 11:45] VITALS: BP 152/81
--- NOTE | 2019-04-23 15:01 | DISCHARGE SUMMARY ---
ADMISSION DATE: 04/21/2019 DISCHARGE DATE: 04/23/2019 ADMITTING DIAGNOSIS: Bilateral carotid stenoses. DISCHARGE DIAGNOSIS: Bilateral carotid stenoses. PRINCIPAL PROCEDURE: Right carotid endarterectomy with patch angioplasty on 04/21/2019. DISCHARGE DISABILITIES: Full. DISCHARGE MEDICATIONS: She is to return to her home medication which includes an aspirin a day. DISCHARGE DIET: Regular. DISCHARGE DISPOSITION: She will return to our outpatient offices in 7 to 10 days for followup. HOSPITAL COURSE: Ms. Marina Ring is a 63-year-old white female smoker who has been discovered to have significant bilateral carotid stenoses and she needs bilateral carotid endarterectomies. We decided to start with the right side. She is admitted on the day of surgery. She went to the operating room, where through a curvilinear transverse incision right neck we performed a right carotid endarterectomy with patch angioplasty. She tolerated the procedure well and after surgery, she had no neurologic deficits. She went to the recovery room and then to the ICU. Hemodynamically she was satisfactory and on postop day 1, she was able to be transferred to the [address] [place] [address] [place] and on postop day 2, it was felt safe to discharge her home under the care of her family with followup in our outpatient offices in 7 to 10 days. At discharge, she did have some swelling of her neck but it was minimal. She had no neurologic deficits. She is able to move around the halls and eat a regular diet. She is to return to her home medications. cc: Iman Cui MD
== END 2019-04-23 14:49 | disposition home or self-care (01) | DRG 39 ==
LOC: SURHOLD 04-21 04:38 → ICU 04-21 10:43 → 4N 04-22 13:03
PROVIDERS: ADMIT Surgery; ATTEND Surgery

== ENCOUNTER 2019-06-19 05:08 | Inpatient (IN) ==
[2019-06-11 09:33] LABS: HEMATOCRIT 47.7 % (37.0-47.0); HEMOGLOBIN 14.9 g/dL (12.0-16.0); MCH 29.7 PG (27-31); MCHC 31.2 g/dL (33-37); MCV 95.2 FL (81-99); MPV 11.1 FL (7.4-10.4); RBC 5.01 XMIL (4.2-5.4); RDW 15.3 % (11.5-14.5); WBC 6.13 X1000 (4.8-10.8)
[2019-06-11 10:08] LABS: AGAP 13; BUN 21 mg/dL (8-22); CALCIUM 9.2 mg/dL (8.8-10.2); CHLORIDE 104 mmol/L (98-107); COSMO 286; CREATININE 0.9 mg/dL (0.5-0.9); ESTIMATED GFR > 60; GLUCOSE 100 mg/dL (70-104); POTASSIUM 4.2 mmol/L (3.5-5.1); SODIUM 142 mmol/L (136-145); TCO2 25 mmol/L (25-35)
[2019-06-19] MEDS ORDERED: LR 1,000 ML ONE ×2 (05:45→10:27)
[2019-06-19] MEDS ORDERED: KEFZOL 1 GM/D5W 1 GM/50 ML IVPB ONE (05:45)
[2019-06-19] MEDS ORDERED: QUELICIN (DOSE) ONE (06:10)
[2019-06-19] MEDS ORDERED: XYLOCAINE-MPF 2% ONE (06:10)
[2019-06-19] MEDS ORDERED: DIPRIVAN 1% ONE (06:10)
[2019-06-19] MEDS ORDERED: FENTANYL ONE (06:10)
[2019-06-19] MEDS ORDERED: VERSED ONE ×2 (06:10→06:47)
[2019-06-19] MEDS ORDERED: NITROGLYCERIN 50 MG/D5W 50 MG/250 ML IV.SOLN ONE (06:20)
[2019-06-19] MEDS ORDERED: NEO-SYNEPHRINE ONE (06:35)
[2019-06-19] MEDS ORDERED: NS 500 ML ONE (06:39)
[2019-06-19] MEDS ORDERED: RECOTHROM ONE (06:39)
[2019-06-19] MEDS ORDERED: NS 1,000 ML ONE (06:39)
[2019-06-19] MEDS ORDERED: HEPARIN ONE (06:39)
[2019-06-19] MEDS ORDERED: XYLOCAINE-MPF 1%/EPI 1:200,000 ONE (06:39)
[2019-06-19] MEDS ORDERED: XYLOCAINE 1% ONE (06:39)
[2019-06-19] MEDS ORDERED: ROBINUL ONE ×3 (07:13→09:55)
[2019-06-19] MEDS ORDERED: DECADRON ONE (07:36)
[2019-06-19] MEDS ORDERED: ZOFRAN ONE (07:36)
[2019-06-19] MEDS ORDERED: HEPARIN (DOSE) ONE ×2 (07:42→07:43)
[2019-06-19] MEDS ORDERED: NEOSTIGMINE ONE (08:12)
[2019-06-19] MEDS ORDERED: LABETALOL (DOSE) ONE (09:06)
--- NOTE | 2019-06-19 09:50 | OPERATIVE NOTE ---
PROCEDURE DATE: 06/19/2019 PREOPERATIVE DIAGNOSIS: Left carotid stenosis. POSTOPERATIVE DIAGNOSIS: Left carotid stenosis. PRINCIPAL PROCEDURE: Left carotid endarterectomy with patch angioplasty. SURGEON: Iman Cui MD. GROUP MANAGER: Dr. Dirk Alaniz and Mario Day RN. ANESTHESIA: General in addition to local anesthetic. ESTIMATED BLOOD LOSS: 100 mL. DRAINS: None. INDICATIONS: Ms. Marina Ring is a 63-year-old white female smoker who I have performed a right carotid endarterectomy with patch angioplasty on 04/21/2019. She had bilateral disease and she presents today for left carotid endarterectomy. FINDINGS: She had a severe calcific plaque at the carotid bulb that extended both into the external and internal carotid arteries. We felt the plaque feathered nicely distally into the left internal carotid artery. We did use a shunt and a patch. DESCRIPTION OF PROCEDURE: The patient was brought to the operating room, placed supine, received general anesthesia. It was intubated. She had a right-sided arterial line placed by Anesthesia. I positioned her on the table with her head turned to the right and we put her in reverse Trendelenburg and she was turned a little bit to the right. Her left neck was prepped and draped in a standard sterile field. We used an [place] on the skin. I had used oblique incision in the right neck and we tried to match it involving the left neck. Local anesthetic was used and I made an incision left neck with a 15 blade scalpel. The incision was carried down through the subcutaneous tissue, platysma muscle using cautery. I used a Gelpi for self-retaining retraction. Then I mobilized the anterior border of the left sternocleidomastoid muscle longitudinally. We identified the facial vein branch and it was suture ligated between two 3-0 silk ties. Other vein branches were controlled using 3-0 silk ties. We identified the common carotid artery and I isolated it with a vessel loop and I dissected from proximal to distal on the common carotid artery. We identified the external carotid artery and isolated it with a vessel loop and then the internal carotid artery was dissected past the plaque proximally. Care was taken not to injure the vagus nerve or the hypoglossal nerve. We did place a vessel loop around the internal carotid artery. Once we had completed the dissection, 5000 units of IV heparin was given. We stopped flow through the distal common carotid artery and its branches using vessel loops. I made an arteriotomy in the lateral distal left common carotid artery and then used Gonzalez scissors to take this arteriotomy through the plaque, into the internal carotid artery. I placed a shunt first proximally and then distally into the internal carotid artery. I used a shunt clamp on the internal carotid artery and controlled the shunt using a vessel loop proximally. I used a [place] elevator to remove the plaque from proximal to distal. We also got the plaque out the external carotid artery. I felt that it feathered nicely distally. We thoroughly irrigated the arteriotomy site with heparin saline and any loose debris was removed with fine forceps. I then chose a 0.8 cm wide patch and I sewed the patch to our arteriotomy site with a double-arm 6-0 Prolene stitch. Before completing the arteriotomy, I removed the shunt, completed the arteriotomy with Prolene and then re-established flow initially through the external carotid artery and then into the internal carotid artery. I did have to take several single arm stitches to control bleeding from my closure. I had a good pulse distally in the internal carotid artery. We were happy that the arteriotomy was dry. We thoroughly irrigated the wound and I did not use a drain. I closed the wound in layers. The first layer was a running 2-0 Vicryl stitch to reapproximate the platysma and I closed the skin with 4-0 Monocryl subcuticular stitch. Dressing was applied. Plans are for her to go to the recovery room and then the ICU. Dr. Joselito Alaniz was present throughout the case. His presence was necessary for help with dissecting out the common carotid artery and its branches. He also helped with following the suture as I closed the arteriotomy. He was necessary for shunt placement also. cc: Iman Cui MD
[2019-06-19] MEDS ORDERED: DUONEB (A & A) INH ONE (09:55)
[2019-06-19] MEDS ORDERED: DUONEB (A & A) ONE (10:01)
[2019-06-19] MEDS ORDERED: NEO-SYNEPHRINE 50 MG in NS 250 ML IV SCH (11:00)
[2019-06-19] MEDS ORDERED: ZOFRAN IV PRN (11:02)
[2019-06-19] MEDS: LR 1,000 ML IV SCH ×2 (11:41→23:53)
[2019-06-19] MEDS: NORCO-5 PO PRN ×2 (14:24→23:52)
[2019-06-20] MEDS: LR 1,000 ML IV SCH (00:31)
[2019-06-20] MEDS ORDERED: ASPIRIN PO SCH (09:00)
--- NOTE | 2019-06-20 10:53 | PROGRESS NOTE ---
DATE: 06/20/2019 SUBJECTIVE: Ms. Marina Ring is a 63-year-old white female who is now postop day 1 from a left carotid endarterectomy with patch angioplasty. She was hospitalized in the ICU postoperatively and needed some pressors to maintain her blood pressure but those have been weaned off. She has some urinary retention, but that resolved when she was able to get up out of bed and void. ASSESSMENT AND PLAN: There is minimal swelling involving her left neck she. Has no neurologic deficits and overall I think she is doing well and we will transfer her to the floor, advance her diet, remove her arterial line. cc: Iman Cui MD
[2019-06-20] MEDS ORDERED: LIPITOR PO SCH (21:00)
[2019-06-21] MEDS ORDERED: VENTOLIN HFA INH SCH (07:30)
[2019-06-21 07:35] VITALS: BP 191/72
[2019-06-21] MEDS ORDERED: ASPIRIN EC PO SCH (09:00)
[2019-06-21] MEDS ORDERED: PRINZIDE 10/12.5MG PO SCH (09:00)
--- NOTE | 2019-06-21 10:21 | DISCHARGE SUMMARY ---
ADMISSION DATE: 06/19/2019 DISCHARGE DATE: 06/21/2019 ADMITTING DIAGNOSIS: Severe stenosis of the left carotid bulb. DISCHARGE DIAGNOSIS: Severe stenosis of the left carotid bulb. PRINCIPAL PROCEDURE: Left carotid endarterectomy with patch angioplasty on 06/19/2019. DISCHARGE DISABILITIES: Full. DISCHARGE DISPOSITION: She will return to our outpatient office in 10 to 14 days for a recheck. DISCHARGE DIET: Regular. DISCHARGE MEDICATIONS: She is to return to her home medications which include a baby aspirin daily. HOSPITAL COURSE: Ms. Marina Ring is a 63-year-old, white female who earlier in the year, I performed a right carotid endarterectomy with patch angioplasty. She had bilateral disease and was admitted on the day of surgery, on 06/19/2019, for a left carotid endarterectomy with patch angioplasty. A shunt was used during the procedure. We felt the procedure went well and after surgery, she went to the ICU where her blood pressure had to be maintained with a pressor for a short period of time but she remained hemodynamically stable. There were no neurologic deficits. No significant swelling of her left neck. On postop day 1, she was transferred to the floor and on postop day 2, it was felt safe to discharge her to her home under the care of her . At discharge, she had minimal swelling of her neck. Her wound was healing well. She was hemodynamically satisfactory. PLAN: Plans are for her to return to her home medicines which include an 81 mg aspirin daily and follow up in my outpatient office in 10 to 14 days. cc: Iman Cui MD
== END 2019-06-21 11:46 | disposition home or self-care (01) | DRG 39 ==
LOC: SURHOLD 05:08 → ICU 11:34 → 4N 06-20 12:16
PROVIDERS: ADMIT Surgery; ATTEND Surgery